=== PATIENT | male | born 1960 | race African-American/Black ===

== ENCOUNTER 2016-08-27 10:54 | Observation (INO) | payer OTHER ==
[2016-08-27] MEDS ORDERED: FAMOTIDINE 20 MG TAB PO ONE (11:05)
[2016-08-27] MEDS ORDERED: DIAZEPAM 5 MG TAB PO ONE (11:05)
[2016-08-27] MEDS ORDERED: NS 1,000 ML IV ONE (11:05)
[2016-08-27] MEDS ORDERED: diphenhydrAMINE 25 MG CAP PO ONE ×2 (11:05→12:24)
[2016-08-27] MEDS ORDERED: ASPIRIN EC 325 MG TAB PO ONE ×2 (11:05→12:26)
[2016-08-27] MEDS ORDERED: DIAZEPAM 5 MG TAB ONE (12:25)
[2016-08-27] MEDS ORDERED: FAMOTIDINE 20 MG TAB ONE (12:25)
[2016-08-27 12:29] LABS: ADD DIFF? NO; ADD MORPH? NO; ADD SCAN? NO; ATYPICAL LYMPHOCYTE FLAG 60 (0-99); FRAGMENT RBC FLAG 0 (0-99); HEMATOCRIT 43.1 % (40.0-51.0); HEMOGLOBIN 15.1 g/dL (13.7-17.5); LEFT SHIFT FLG 0 (0-99); LIPEMIA HEMOLYSIS FLAG 90 (0-99); MEAN CELL HEMOGLOBIN 29.5 pg (27.9-34.1); MEAN CELL VOLUME 84.2 fL (81.5-99.8); PLATELET CLUMPS FLAG 0 (0-99); PLATELET COUNT 207 10^3/uL (150-400); RED BLOOD CELL COUNT 5.12 10^6/uL (4.40-6.38); RED CELL DISTRIBUTION WIDTH 11.6 % (11.5-15.2)
[2016-08-27 12:39] LABS: INR 1.04 (0.83-1.16); PROTIME(PATIENT) 13.5 SEC (12.0-15.0)
[2016-08-27 12:47] LABS: ANION GAP 11 mEq/L (8-16); CALCIUM 9.4 mg/dL (8.5-10.4); CARBON DIOXIDE 25 mEq/l (22-31); CHLORIDE 106 mEq/L (97-110); CHOLESTEROL 244 mg/dL (140-220); CHOLESTEROL/HDL RATIO 5.19 RATIO (1.00-4.97); CREATININE 0.9 mg/dL (0.7-1.3); GLOMERULAR FILTRATION RATE > 60; GLUCOSE 104 mg/dL (70-100); HIGH DENSITY LIPOPROTEIN 47 mg/dL (40-65); LOW DENSITY LIPOPROTEIN 169 mg/dL (80-100); NON-HIGH DENSITY LIPOPROTEIN 197 mg/dL (90-129); POTASSIUM 4.1 mEq/L (3.5-5.2); SODIUM 142 mEq/L (134-144); TRIGLYCERIDE 144 mg/dL (40-150); VERY LOW DENSITY LIPOPROTEINS 28 mg/dL (8-25)
--- NOTE | 2016-08-27 12:56 | CPEKG ---
Heart Rate: 77 RR Interval: 779 P-R Interval: 168 QRSD Interval: 78 QT Interval: 384 QTC Interval: 435 P [place]: 77 QRS [place]: 57 T Wave [place]: 43 EKG Severity - BORDERLINE ECG - EKG Impression: SINUS ARRHYTHMIA, RATE 60-87 EKG Impression: BORDERLINE ST ELEVATION, ANTEROLATERAL LEADS Electronically Signed By: Navi Argueta 27-Aug-2016 15:37:15
[2016-08-27] MEDS ORDERED: HEPARIN 10,000 UNIT/10 ML MDV ONE (14:45)
[2016-08-27] MEDS ORDERED: fentaNYL 100 MCG/2 ML INJ ONE ×2 (14:45→15:31)
[2016-08-27] MEDS ORDERED: LIDOCAINE 1% 30 ML SDV ONE (14:45)
[2016-08-27] MEDS ORDERED: MIDAZOLAM 2 MG/2 ML VIAL ONE ×3 (14:45→15:32)
[2016-08-27] MEDS ORDERED: VERAPAMIL 5 MG/2 ML VIAL ONE (14:45)
[2016-08-27] MEDS ORDERED: IOPAMIDOL (ISOVUE-370) 150 ML BTL IV ONE ×2 (14:46→15:45)
--- NOTE | 2016-08-27 15:54 | PDDXCAT ---
Diagnostic Cath Note - . Date: 08/27/16 Intervention: None *Procedure Access: right radial (a plethysmography trace assisted Ernesto's Test was used to document dual artery supply to the hand and index finger prior to access). Procedure: 1. selective coronary angiography 2. left heart catheterization 3. left ventriculogram 4. stent implantation in the proximal left circumflex Indication: Abnormal exercise treadmill test with ST depression in v3-v5 suggestive of ischemia, CCS class III angina. *Materials Left Heart Cath size: 5F Left Heart Cath materials: JL3.5, LBU3.0, JR4.0, pigtail *Findings-Selective Coronary Angiography LM: Short, ~5 mm in size and quickly bifurcates into an LAD and circumflex system. There is no flow-limiting disease. LAD: The proximal LAD is ~3 mm in size. There is no evidence of flow-limiting disease with HUYEN III flow throughout. LCX: The left circumflex is dominant and ~3 mm in size proximally. There is a proximal lesion estimated to be 80% in area with HUYEN III flow. RCA: The right coronary artery is small, non-dominant and ~3 mm in size. There is no evidence of flow-limiting disease with HUYEN III flow throughout. *Findings-Left Heart Catheterization EDP: 9 mmHg LVEF: 65% Wall motion analysis: There are no wall motion abnormalities identified on left ventriculogram. The visualized portion of the thoracic aorta appears normal in size without félix evidence of aneurysm or dissection. *Intervention Intervention: A 5 [place] LBU3.0 guiding catheter was used for guide catheter support. A 0.014" [place] J Wire was advanced across the left circumflex lesion in question under direct fluoroscopic and angiographic guidance. A 3.75 x 12 mm Synergy drug eluting stent was placed in the proximal left circumflex and inflated to a maximum of 12 eleazar of pressure. S/p stent implantation, there was excellent angiographic results with 0% residual stenosis and HUYEN III flow. *Summary Complications: None Estimated blood loss: <50ml Closure method: TR Band Assessment/Conclusion: 1. Severe [place] vessel coronary artery disease of the proximal left circumflex that required stent implantation (3.75 x 12 mm Synergy drug eluting stent) as outlined above. S/p stent implantation there was 0% residual stenosis and HUYEN III flow. 2. Normal ejection fraction of 65% and LVEDP at 9 mmHg with no wall motion abnormalities on left ventriculogram. The patient will need to be on dual antiplatelet therapy with ASA and Plavix for a minimum of 1 year s/p stent implantation. His hyperlipidemia should be managed with 20 mg Rosuvastatin daily to prevent the progression of plaque formation, progression and inflammation. He will need follow up in the clinic with lipids and liver enzymes.
[2016-08-27] MEDS ORDERED: NITROGLYCERIN 1,500 MCG/15 ML VIAL MISC ONE (15:59)
[2016-08-27] MEDS ORDERED: ATROPINE SULFATE 1 MG/10 ML SYR IVP PRN (16:16)
[2016-08-27] MEDS ORDERED: ONDANSETRON 4 MG/2 ML VIAL IVP PRN (16:16)
[2016-08-27] MEDS ORDERED: TEMAZEPAM 15 MG CAP PO PRN (16:16)
[2016-08-27] MEDS ORDERED: ACETAMINOPHEN 325 MG TAB PO PRN (16:16)
[2016-08-27] MEDS ORDERED: LORazepam 2 MG/ML INJ IVP PRN (16:16)
[2016-08-27] MEDS ORDERED: NITROGLYCERIN 0.4 MG BTL SL PRN (16:16)
[2016-08-27] MEDS ORDERED: PRASUGREL HCL 10 MG TAB PO ONE (16:16)
[2016-08-27] MEDS ORDERED: ONDANSETRON DISINTEGRATING 4 MG TAB PO PRN (16:16)
[2016-08-27] MEDS ORDERED: PRASUGREL HCL 10 MG TAB ONE (16:20)
[2016-08-27] MEDS ORDERED: NS 1,000 ML IV SCH (16:30)
--- NOTE | 2016-08-27 16:39 | CPEKG ---
Heart Rate: 61 RR Interval: 984 P-R Interval: 176 QRSD Interval: 80 QT Interval: 428 QTC Interval: 431 P [place]: 73 QRS [place]: -26 T Wave [place]: 59 EKG Severity - ABNORMAL ECG - EKG Impression: SINUS RHYTHM EKG Impression: BORDERLINE LEFT AXIS DEVIATION Electronically Signed By: Navi Argueta 28-Aug-2016 14:42:23
[2016-08-28 06:55] LABS: % IMMATURE GRANULYOCYTES 0.2 % (0.0-1.1); ABSOLUTE IMMATURE GRANULOCYTES 0.01 10^3/uL (0.00-0.10); ADD DIFF? NO; ADD MORPH? NO; ADD SCAN? NO; ATYPICAL LYMPHOCYTE FLAG 10 (0-99); FRAGMENT RBC FLAG 0 (0-99); HEMATOCRIT 41.8 % (40.0-51.0); HEMOGLOBIN 14.8 g/dL (13.7-17.5); LEFT SHIFT FLG 0 (0-99); LIPEMIA HEMOLYSIS FLAG 90 (0-99); MEAN CELL HEMOGLOBIN CONCENTR. 35.4 g/dL (32.4-36.7); MEAN CELL VOLUME 84.8 fL (81.5-99.8); MEAN PLATELET VOLUME 11.4 fL (8.7-11.7); PLATELET CLUMPS FLAG 0 (0-99); PLATELET COUNT 203 10^3/uL (150-400); RED BLOOD CELL COUNT 4.93 10^6/uL (4.40-6.38); RED CELL DISTRIBUTION WIDTH 11.9 % (11.5-15.2)
[2016-08-28 06:56] LABS: ALBUMIN 3.8 g/dL (3.5-5.0); ANION GAP 6 mEq/L (8-16); ASPARTATE AMINOTRANSFERASE 22 IU/L (17-59); BILIRUBIN,TOTAL 0.6 mg/dL (0.1-1.4); CALCIUM 9.2 mg/dL (8.5-10.4); CARBON DIOXIDE 25 mEq/l (22-31); CHLORIDE 108 mEq/L (97-110); CREATININE 0.9 mg/dL (0.7-1.3); GLOMERULAR FILTRATION RATE > 60; GLUCOSE 98 mg/dL (70-100); LACTATE DEHYDROGENASE 400 IU/L (313-618); MAGNESIUM 2.1 mg/dL (1.6-2.3); POTASSIUM 4.3 mEq/L (3.5-5.2); SODIUM 139 mEq/L (134-144)
[2016-08-28 08:46] VITALS: BP 126/94; PULSE 80; RESP 19; TEMP 98.2; O2SAT 98
[2016-08-28] MEDS ORDERED: ASPIRIN EC 325 MG TAB PO SCH (09:00)
[2016-08-28] MEDS ORDERED: ROSUVASTATIN CALCIUM 20 MG TAB PO SCH (09:00)
[2016-08-28] MEDS ORDERED: PRASUGREL HCL 10 MG TAB PO SCH (09:00)
--- NOTE | 2016-08-28 10:05 | CPEKG ---
Heart Rate: 75 RR Interval: 800 P-R Interval: 156 QRSD Interval: 78 QT Interval: 360 QTC Interval: 402 P [place]: 75 QRS [place]: 40 T Wave [place]: 25 EKG Severity - NORMAL ECG - EKG Impression: SINUS RHYTHM Electronically Signed By: Navi Argueta 28-Aug-2016 14:41:24
--- NOTE | 2016-08-28 12:32 | GDS ---
ADMISSION DIAGNOSES: 1. Chest pressure. 2. Abnormal exercise stress test. DISCHARGE DIAGNOSES: 1. Coronary artery disease. 2. Status post percutaneous coronary intervention of proximal circumflex with a 3.75 x 12 Synergy d rug-eluting stent. 3. Hypertension. 4. Hyperlipidemia. PROCEDURES DONE DURING HOSPITALIZATION: 1. Electrocardiogram. 2. Diagnostic cardiac catheterization. 3. Percutaneous coronary intervention of the proximal circumflex artery with 3.75 x 12 mm Synergy D ES. BRIEF HISTORY: Please see H and P. The patient is a 56-year-old male who has been reporting ongoin g chest discomfort for 4-6 weeks. He recently underwent exercise treadmill testing, showing ST depr ession in V3 through V5 at peak exercise with chest discomfort. At that point, he was sent to our o ffice for further evaluation, on August 26, followed by WILBER Eaton. After discussing with Dr. Leonides joshi, it was determined that for further evaluation the patient should undergo coronary catheterization . Patient agreed. HOSPITAL COURSE: Patient was admitted to the CVC, prepped for procedure and taken to the cardiac ca theterization lab. There, through the right radial access approach, Dr. Rivera performed a diagnost ic coronary catheterization on him, finding no flow-limiting disease in the left main, no evidence o f flow limiting disease in LAD, proximal lesion in the proximal circumflex around 80% to 90%, RCA no ndominant with no flow-limiting disease. LVEF was 65% with no wall motion identified. At that poin t, it was decided to intervene. Dr. Rivera successfully implanted at 3.75 x 12 mm Synergy SARAHI into the patient's proximal circumflex with no complications. The patient was started on dual anti-plate let therapy and transferred back to the CVC, and ultimately to the PCU for overnight observation. D uring the evening, the patient reports overnight on the telemetry floor he had no chest pain or shor tness of breath. Continuous cardiac monitoring shows sinus rhythm, with no arrhythmias or malignant pauses noted. PHYSICAL EXAMINATION: Done today. GENERAL APPEARANCE: Medium-built, well-groomed male. He is mason rt and oriented to person, place, time, and situation. Appears to be under no acute distress. MICA L SIGNS: Current vital signs are blood pressure 126/94, heart rate of 80, respirations 18, saturati ng 98% on room air, temperature of 36.8 degrees Celsius. HEENT: Head is normocephalic. Lips and t ongue are pink and moist with no signs of cyanosis. Conjunctivae pink. NECK: Trachea is midline, +2 carotid pulses bilateral, no auscultated bruits, no jugular vein distention. RESPIRATORY: Lungs clear to auscultation. No rhonchi, rales or wheezes. No accessory muscle use. No intercostal mus sigifredo retraction noted. CARDIAC: Regular rate, regular rhythm, S1, S2. No S3, S4, rubs, gallops or murmurs noted. ABDOMEN: Soft, nontender. Bowel sounds x4 quadrants. No organomegaly, no palpable masses. SKIN: Warm, dry. No clubbing or edema noted. Catheter insertion site, right wrist, punc ture site with no redness, swelling, drainage, ecchymosis or hematoma. Capillary refill within norm al limits to right finger and hand. NEURO: Cranial nerves 2-12 grossly intact. LABORATORY STUDIES: Today show WBC of 5.96, hemoglobin of 14.8, hematocrit of 41.8, platelet count 203. Sodium of 139, potassium 4.3, chloride 108, CO2 of 25, BUN 16, creatinine 0.9, glucose 98, jaciel cium 9.2, phosphorus 2.9, magnesium 2.1. Total bilirubin 0.6, AST 22, lactic is 400, alb umin 3.8. On admission, patient was noted to have a total cholesterol of 244, LDL of 169, HDL of 47 . Cardiac catheterization and intervention as mentioned above. Morning electrocardiogram shows sinus rhythm, normal axis, with no significant ST or T-wave abnormalities suggesting of ischemia. DISCHARGE DISPOSITION: Patient to be discharged home in stable condition. He is under activity res trictions of not lifting more than 10 pounds with the right hand for the next week and no strenuous activity for the next 2 weeks. DISCHARGE MEDICATIONS: Please see discharge medication reconciliation sheet. Note, patient has bee n asked to increase his aspirin therapy to 325 mg once daily. He has been started on Effient for 10 mg p.o. daily. He has also been started on Crestor at 20 mg p.o. at bedtime. Due to mildly elevat ed diastolic blood pressure, he has been started on lisinopril at 2.5 mg p.o. daily. DISCHARGE INSTRUCTIONS: Post percutaneous coronary intervention radial axis discharge instructions went over with the patient and his family, including medication compliancy, especially the importanc e of dual anti-platelet therapy and the importance to not stop it, activity restrictions, bathing pr ecautions, monitoring for signs of infection, bleeding precautions. Note, with the starting of getachew nopril, he has been given a lab slip to have a basic metabolic panel done before his next office vis it. He will also need to have a fasting lipid and liver panel done in 6-8 weeks with starting stati n therapy. A cardiac rehab referral has been done which he will follow up with as an outpatient. A t the time of discharge, the patient and his family verbalized understanding of all instructions and have no questions. They have been told if any problems or concerns come up post discharge, they ar e to notify our office or return to the hospital. Total time spent on discharge greater than 30 min [place]. /[id number]/MODL
== END 2016-08-28 12:43 | disposition home or self-care (01) ==
LOC: FCATH 10:54 → F2W 16:17
PROVIDERS: ADMIT Internal Medicine Cardiovascular Disease; ATTEND Internal Medicine Cardiovascular Disease
PROC: 4A023N7 Measurement of Cardiac Sampling and Pressure, Left Heart, Percutaneous Approach (ICD-10-PCS; principal; 2016-08-27)
PROC: B2111ZZ Fluoroscopy of Multiple Coronary Arteries using Low Osmolar Contrast (ICD-10-PCS; principal; 2016-08-27)
PROC: 027034Z Dilation of Coronary Artery, One Artery with Drug-eluting Intraluminal Device, Percutaneous Approach (ICD-10-PCS; principal; 2016-08-27)
PROC: B2151ZZ Fluoroscopy of Left Heart using Low Osmolar Contrast (ICD-10-PCS; principal; 2016-08-27)
DX: I25.119 Atherosclerotic heart disease of native coronary artery with unspecified angina pectoris (principal); R94.39 Abnormal result of other cardiovascular function study; I10 Essential (primary) hypertension; E78.5 Hyperlipidemia, unspecified
CPT/HCPCS: 92928; 93005; 93458; C1769; C1887; G0378; C1874; C9600; J1644; J2250; J3010; Q9967

== ENCOUNTER → 2016-11-10 | Outpatient (CLI) | payer OTHER | LOC: CIMAGING 07:51 | DX: R19.09 Other intra-abdominal and pelvic swelling, mass and lump (principal); R10.31 Right lower quadrant pain | CPT/HCPCS: 76705-PO ==

== ENCOUNTER → 2016-11-25 | Outpatient (CLI) | payer OTHER | LOC: CIMAGING 17:22 | DX: N50.812 Left testicular pain (principal) | CPT/HCPCS: 76870-PO ==

== ENCOUNTER 2017-04-13 16:10 | Observation (INO) | payer OTHER ==
[2017-04-13] MEDS ORDERED: ACETAMINOPHEN 325 MG TAB PO PRN (16:19)
[2017-04-13] MEDS ORDERED: TEMAZEPAM 15 MG CAP PO PRN (16:19)
[2017-04-13] MEDS ORDERED: NITROGLYCERIN 0.4 MG BTL SL PRN (16:19)
[2017-04-13] MEDS ORDERED: ACETAMINOPHEN 650 MG/20.3 ML UDCUP PO PRN (16:22)
[2017-04-13 18:33] LABS: % IMMATURE GRANULYOCYTES 0.2 % (0.0-1.1); ABSOLUTE IMMATURE GRANULOCYTES 0.01 10^3/uL (0.00-0.10); ADD DIFF? NO; ADD MORPH? NO; ADD SCAN? NO; ATYPICAL LYMPHOCYTE FLAG 0 (0-99); FRAGMENT RBC FLAG 0 (0-99); HEMATOCRIT 47.6 % (40.0-51.0); HEMOGLOBIN 16.4 g/dL (13.7-17.5); LEFT SHIFT FLG 0 (0-99); LIPEMIA HEMOLYSIS FLAG 90 (0-99); MEAN CELL HEMOGLOBIN CONCENTR. 34.5 g/dL (32.4-36.7); MEAN CELL VOLUME 87.2 fL (81.5-99.8); PLATELET CLUMPS FLAG 0 (0-99); PLATELET COUNT 260 10^3/uL (150-400); RED BLOOD CELL COUNT 5.46 10^6/uL (4.40-6.38)
[2017-04-13 18:56] LABS: ANION GAP 15 mEq/L (8-16); CALCIUM 9.7 mg/dL (8.5-10.4); CARBON DIOXIDE 23 mEq/l (22-31); CHLORIDE 101 mEq/L (97-110); CREATININE 0.9 mg/dL (0.7-1.3); GLOMERULAR FILTRATION RATE > 60; GLUCOSE 90 mg/dL (70-100); POTASSIUM 4.5 mEq/L (3.5-5.2); SODIUM 139 mEq/L (134-144)
[2017-04-13 19:07] LABS: TROPONIN I 0.012 ng/mL (0.000-0.034)
[2017-04-14] MEDS ORDERED: diphenhydrAMINE 25 MG CAP PO ONE (06:00)
[2017-04-14] MEDS ORDERED: NS 1,000 ML IV ONE (06:00)
[2017-04-14] MEDS ORDERED: DIAZEPAM 5 MG TAB PO ONE (06:00)
[2017-04-14] MEDS ORDERED: ASPIRIN EC 325 MG TAB PO ONE (06:00)
[2017-04-14] MEDS ORDERED: FAMOTIDINE 20 MG TAB PO ONE (06:00)
[2017-04-14 06:28] LABS: % IMMATURE GRANULYOCYTES 0.2 % (0.0-1.1); ABSOLUTE IMMATURE GRANULOCYTES 0.01 10^3/uL (0.00-0.10); ADD DIFF? NO; ADD MORPH? NO; ADD SCAN? NO; ATYPICAL LYMPHOCYTE FLAG 20 (0-99); FRAGMENT RBC FLAG 0 (0-99); HEMATOCRIT 44.5 % (40.0-51.0); HEMOGLOBIN 15.6 g/dL (13.7-17.5); LEFT SHIFT FLG 0 (0-99); LIPEMIA HEMOLYSIS FLAG 90 (0-99); MEAN CELL HEMOGLOBIN CONCENTR. 35.1 g/dL (32.4-36.7); MEAN CELL VOLUME 88.3 fL (81.5-99.8); MEAN PLATELET VOLUME 10.7 fL (8.7-11.7); PLATELET CLUMPS FLAG 0 (0-99); PLATELET COUNT 216 10^3/uL (150-400); RED BLOOD CELL COUNT 5.04 10^6/uL (4.40-6.38); RED CELL DISTRIBUTION WIDTH 12.1 % (11.5-15.2)
[2017-04-14 06:38] LABS: INR 1.09 (0.83-1.16)
[2017-04-14 06:39] LABS: APTT 27.3 SEC (23.0-38.0)
[2017-04-14 07:07] LABS: ANION GAP 11 mEq/L (8-16); CALCIUM 9.1 mg/dL (8.5-10.4); CARBON DIOXIDE 23 mEq/l (22-31); CHLORIDE 105 mEq/L (97-110); CHOLESTEROL 122 mg/dL (140-220); CHOLESTEROL/HDL RATIO 2.35 RATIO (1.00-4.97); GLOMERULAR FILTRATION RATE > 60; GLUCOSE 98 mg/dL (70-100); HIGH DENSITY LIPOPROTEIN 52 mg/dL (40-65); LDL/HDL RATIO 0.98 RATIO (1.00-3.64); LOW DENSITY LIPOPROTEIN 51 mg/dL (80-100); NON-HIGH DENSITY LIPOPROTEIN 70 mg/dL (90-129); POTASSIUM 5.1 mEq/L (3.5-5.2); SODIUM 139 mEq/L (134-144); TRIGLYCERIDE 97 mg/dL (40-150); VERY LOW DENSITY LIPOPROTEINS 19 mg/dL (8-25)
--- NOTE | 2017-04-14 08:40 | CPEKG ---
Heart Rate: 64 RR Interval: 938 P-R Interval: 156 QRSD Interval: 78 QT Interval: 384 QTC Interval: 396 P [place]: 74 QRS [place]: 40 T Wave [place]: 39 EKG Severity - OTHERWISE NORMAL ECG - EKG Impression: SINUS RHYTHM EKG Impression: MINIMAL ST ELEVATION, ANTERIOR LEADS Electronically Signed By: Andre Pearson 15-Apr-2017 13:58:56
[2017-04-14] MEDS: ASPIRIN EC 81 MG TAB PO SCH (09:04)
[2017-04-14] MEDS: PRASUGREL HCL 10 MG TAB PO SCH (09:23)
--- NOTE | 2017-04-14 09:47 | ASMTCMCOM ---
CM Note CM Note Notes: 04/14/2017 Case Management Note Reviewed chart, spoke w/RN. Pt to have angio today at 11. No case management d/c needs identified d/t strong family support, pt age and activity levels prior to admission. No therapy evals ordered. Case Management d/c poc: Home independent when medically stable with follow up as directed. Date Signed: 04/14/2017 09:46 AM Electronically Signed By:Sheba Jeffries RN
[2017-04-14] MEDS: LISINOPRIL 2.5 MG TAB PO SCH (10:00)
[2017-04-14] MEDS: ROSUVASTATIN CALCIUM 20 MG TAB PO SCH (10:00)
--- NOTE | 2017-04-14 10:52 | PDPROPOC ---
Sedation Plan of Care Sedation Plan of Care: vital signs stable, patient educated of risks, benefits, alternatives, patient can tolerate sedation ASA Classification: ASA 2 Planned drugs: fentanyl, midazolam Mallampati Score: Class 2 Mallampati Reference Image: Patient passed 3-3-2 rule?: Yes
--- NOTE | 2017-04-14 10:52 | PDHPUP ---
History & Physical Update H&P update statement: This history and physical update is based on an assessment of the patient which was completed after admission or registration (within 24 hours), but prior to the surgery/procedure. H&P update: H&P reviewed & patient examined, no change in patient's condition since H&P completed
[2017-04-14] MEDS ORDERED: fentaNYL 100 MCG/2 ML INJ ONE ×3 (11:00→16:53)
[2017-04-14] MEDS ORDERED: LIDOCAINE 1% 300 MG/30 ML SDV ONE (11:00)
[2017-04-14] MEDS ORDERED: HEPARIN 10,000 UNIT/10 ML MDV ONE (11:01)
[2017-04-14] MEDS ORDERED: VERAPAMIL 5 MG/2 ML VIAL ONE (11:01)
[2017-04-14] MEDS ORDERED: IOPAMIDOL (ISOVUE-370) 150 ML BTL IV ONE ×2 (11:01→12:53)
[2017-04-14] MEDS ORDERED: MIDAZOLAM 2 MG/2 ML VIAL ONE ×2 (11:01→11:41)
[2017-04-14] MEDS ORDERED: BIVALIRUDIN 250 MG/5 ML VIAL IV ONE (12:04)
[2017-04-14] MEDS ORDERED: NITROGLYCERIN 1,500 MCG/15 ML VIAL MISC ONE ×2 (12:31→12:37)
--- NOTE | 2017-04-14 12:33 | PDDXCAT ---
Diagnostic Cath Note - . Date: 04/14/17 Medical Billing Associate: Selina Indication: CCC Class III and IV angina on medical treatment - Procedure Access: right groin Procedure: left heart catheterization, coronary angiography, left ventriculogram - Materials Left Heart Cath size: 6F - Findings-Left Heart Catheterization LM: normal. LAD: normal LCX: Prox LCx with 95% ISRS. Two normal OM RCA: nondominant, no sig disease EDP: 10 LVEF: 70 Wall motion: normal Complications: none Estimated blood loss: <50ml Assessment: ISRS LCx Intervention: consult with Dr. Argueta for PCI off LCx
[2017-04-14] MEDS ORDERED: ADENOSINE 90 MG/30 ML VIAL IV ONE (12:39)
[2017-04-14] MEDS ORDERED: fentaNYL 100 MCG/2 ML INJ IVP ONE (17:15)
--- NOTE | 2017-04-14 17:24 | CPEKG ---
Heart Rate: 71 RR Interval: 845 P-R Interval: 152 QRSD Interval: 76 QT Interval: 384 QTC Interval: 418 P [place]: 78 QRS [place]: 51 T Wave [place]: 37 EKG Severity - NORMAL ECG - EKG Impression: SINUS RHYTHM Electronically Signed By: Andre Pearson 15-Apr-2017 13:59:04
[2017-04-15 05:18] LABS: % IMMATURE GRANULYOCYTES 0.3 % (0.0-1.1); ABSOLUTE IMMATURE GRANULOCYTES 0.02 10^3/uL (0.00-0.10); ADD DIFF? NO; ADD MORPH? NO; ADD SCAN? NO; ATYPICAL LYMPHOCYTE FLAG 10 (0-99); FRAGMENT RBC FLAG 0 (0-99); HEMOGLOBIN 13.4 g/dL (13.7-17.5); LEFT SHIFT FLG 0 (0-99); LIPEMIA HEMOLYSIS FLAG 90 (0-99); MEAN CELL HEMOGLOBIN CONCENTR. 34.4 g/dL (32.4-36.7); MEAN CELL VOLUME 87.4 fL (81.5-99.8); MEAN PLATELET VOLUME 11.5 fL (8.7-11.7); PLATELET CLUMPS FLAG 0 (0-99); PLATELET COUNT 210 10^3/uL (150-400); RED BLOOD CELL COUNT 4.46 10^6/uL (4.40-6.38)
[2017-04-15 05:32] LABS: ALBUMIN 3.1 g/dL (3.5-5.0); ANION GAP 7 mEq/L (8-16); ASPARTATE AMINOTRANSFERASE 18 IU/L (17-59); BILIRUBIN,TOTAL 0.5 mg/dL (0.1-1.4); CALCIUM 8.8 mg/dL (8.5-10.4); CARBON DIOXIDE 24 mEq/l (22-31); CHLORIDE 103 mEq/L (97-110); CREATININE 0.9 mg/dL (0.7-1.3); GLOMERULAR FILTRATION RATE > 60; GLUCOSE 85 mg/dL (70-100); POTASSIUM 4.2 mEq/L (3.5-5.2); SODIUM 134 mEq/L (134-144)
[2017-04-15 08:24] VITALS: BP 108/75; PULSE 98; RESP 16; TEMP 98.3; O2SAT 97
[2017-04-15] MEDS: ASPIRIN EC 81 MG TAB PO SCH (08:55)
[2017-04-15] MEDS: ROSUVASTATIN CALCIUM 20 MG TAB PO SCH (08:55)
[2017-04-15] MEDS: LISINOPRIL 2.5 MG TAB PO SCH (08:55)
[2017-04-15] MEDS: PRASUGREL HCL 10 MG TAB PO SCH (08:55)
--- NOTE | 2017-04-15 08:55 | CPEKG ---
Heart Rate: 88 RR Interval: 682 P-R Interval: 164 QRSD Interval: 80 QT Interval: 340 QTC Interval: 412 P [place]: 84 QRS [place]: 47 T Wave [place]: 40 EKG Severity - NORMAL ECG - EKG Impression: SINUS RHYTHM Electronically Signed By: Andre Pearson 15-Apr-2017 13:59:13
--- NOTE | 2017-04-15 11:46 | GDS ---
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 Unique Marks. ADMISSION DIAGNOSES: 1. Exertional chest pressure. 2. History of coronary artery disease with previous percutaneous coronary intervention of the circum flex, 08/27/2016. 3. Dyslipidemia. 4. Hypertension. DISCHARGE DIAGNOSES: 1. Coronary artery disease. 2. Restenoses of SARAHI stent in proximal circumflex. 3. New Xience SARAHI implantation into the proximal circumflex. 4. Hypertension. 5. Dyslipidemia. PROCEDURES DONE DURING HOSPITALIZATION: 1. Electrocardiogram. 2. Diagnostic coronary catheterization. 3. Percutaneous coronary intervention of the circumflex artery with a 3.5 x 15 Xience drug-eluting s tent. 4. Pressure wire of LAD with FFR of 0.86. BRIEF HISTORY: Please see H and P. Briefly, the patient is a 56-year-old male with known history of CAD. He recently underwent percutaneous coronary intervention of the circumflex artery on August 27, 2016. He was seen in our office on April 13 by WILBER Fisher. There, he was reporting, after w alking 20 feet, developing exertional chest pressure. Due to his recent history of PCI and multiple cardiac risk factors and symptoms, it was decided that the patient should be directly admitted to the hospital for observation with plan of cardiac catheterization. HOSPITAL COURSE: The patient was admitted to the telemetry unit, PCU, directly from the office on . There, laboratory studies were drawn. He had initial troponin levels drawn, which were neg ative. He was asymptomatic through the night. On April 14, he was taken to the cardiac catheteriz ation lab where Dr. Marks performed a diagnostic heart catheterization on him. Findings of the study showed left main was normal, LAD was normal, proximal circumflex stent with in-stent restenosis of 95 %, and RCA was nondominant and no significant disease. LV gram was done, showing LVEF of 70% with ED P of 10 mmHg. At that point, Dr. Argueta of Interventional Cardiology was consulted. Reviewing obdulio ms with Dr. Marks, it was decided that the patient should proceed with percutaneous coronary intervent ion. Dr. Argueta was successfully able to implant a 3.5 x 15 Xience stent, different stent from his previous one, through the restenosis of previous stent, leaving 0 residual. There was a mild plaque shift to the proximal LAD. At that point, Dr. Argueta performed a pressure wire on him, with a fra ctional flow showing no flow-limiting disease. The patient was taken off the table. He continued hi s dual anti-platelet therapy of aspirin and clopidogrel. Unfortunately, at the end of the procedure, the patient was taken back to the CVC. There, he waited for his ECT to come within normal limits, a nd his femoral sheath was removed. Unfortunately, after obtaining hemostasis, patient did move and d eveloped a small hematoma over the puncture site, but no active bleeding. Manual pressure was held, and bed rest continued. Hemostasis was re-attained. The patient was taken back to the PCU for overni ght observation. Per continuous cardiac monitoring, he has been in sinus rhythm with no ectopy or ma lignant pauses noted. He has been up and walking in the unit without any symptoms suggesting of isch emia. He has had no further increase in hematoma on his right groin. PHYSICAL EXAMINATION: Done today. GENERAL APPEARANCE: Thin, short-statured, male. CURRENT VITAL SIGNS: Blood pressure of 108/75, heart rate 98, sinus rhythm on the monitor, respira tions 16, saturating 97% on room air, temperature of 36.8 degrees Celsius. HEENT: Head is normoceph alic. Lips and tongue are pink and moist, with no signs of cyanosis. Conjunctivae pink. NECK: Tra ike is midline. +2 carotid pulses bilateral. No auscultated bruits, no jugular vein distention. R ESPIRATORY: Lungs clear to auscultation. No rhonchi, rales or wheezes. No accessory muscle use. N o intercostal muscle retraction noted. CARDIAC: Regular rate, regular rhythm, S1, S2, no S3, S4, ga llops, rubs or murmurs noted. ABDOMEN: Soft, nontender, bowel sounds x4 quadrants. No organomegaly , no palpable masses. SKIN: [place], warm, dry, no cyanosis, no clubbing, no peripheral edema. VASCUL AR: +2 carotids bilateral, +2 radials bilateral, +2 dorsal pedal and posterior tibial pulses bilater al. Catheter insertion site, right groin site, with no redness, swelling, drainage, or ecchymosis no oseas. A 2 x 2 small hematoma over puncture site, nontender, noted. No auscultated bruit over site. LABORATORY DATA: Laboratory studies drawn today showed WBC of 7.54, hemoglobin of 13.4, hematocrit o f 39.0, platelet count of 210, sodium 134, potassium 4.2, chloride 103, CO2 24, BUN 15, creatinine 0. 9, glucose 85, phosphorus 3.7, magnesium 2.0, total bilirubin 0.5, AST 18. The patient did have fast ing lipid panel drawn yesterday showing triglycerides of 97, total cholesterol 122, LDL 51, HDL of 52 . Patient had 2 troponins drawn before his heart catheterization; both of them were negative. PROCEDURES PERFORMED: Morning electrocardiogram shows sinus rhythm, normal axis, no acute ST or T-wa ve abnormalities. Diagnostic heart catheterization as mentioned above. Percutaneous coronary interv ention as mentioned above. Flow wire procedure as mentioned above. DISPOSITION: Patient will be discharged home in stable condition. He is under activity restrictions of not lifting more than 10 pounds for the next week and no strenuous activity for the next 2 weeks. DISCHARGE MEDICATIONS: Please see discharge medication reconciliation sheet. Patient will be contin ued on all his home medications, with the exception of increasing his aspirin to 325 mg p.o. daily. He will remain on current dose of Effient. The importance of dual anti-platelet therapy with drug-el uting stent implantation was explained to the patient, and he verbalizes understanding. DISCHARGE INSTRUCTIONS: Post-percutaneous coronary intervention discharge instructions went over wit h the patient and his , including monitoring for signs of infection, bleeding precautions, activi ty restrictions, and medication compliance. At the time of discharge, both patient and his verb alized understanding of all instructions and have no questions. They have been told that if any prob lems or concerns come up post discharge, they are to call our office or return to the hospital immedi ately. The patient does have a followup appointment with WILBER Fisher, of our services set for April 27. Total time spent on discharge: Greater than 30 minutes. /[id number]/MODL
--- NOTE | 2017-04-15 13:54 | ASDISCHSUM ---
Discharge Information Plan Status:Home with No Needs Medically Cleared to Leave: Discharge Date:04/15/2017 11:29 AM CM D/C Disposition:Home, Routine, Self-Care ADT D/C Disposition:Home, Routine, Self-Care Projected Discharge Date:04/15/2017 11:29 AM Transportation at D/C:Family Discharge Delay Reason: Follow-Up Date:04/15/2017 11:29 AM Discharge Slot: Final Diagnosis: Placement Information Patient Contact Information Contact Name:KEENAN Relationship: Address:[address] [place] [address] City:[facility] Phone: [facility] Code:[place] [address] Email: Financial Information Financial Class:[facility] Primary Plan Desc:[employer] OPEN ACC [facility] Primary Plan Number:[id number] Secondary Plan Desc: Secondary Plan Number: Assessment Information [facility] CM Progress Note CM Note CM Note Notes: 04/14/2017 Case Management Note Reviewed chart, spoke w/RN. Pt to have angio today at 11. No case management d/c needs identified d/t strong family support, pt age and activity levels prior to admission. No therapy evals ordered. Case Management d/c poc: Home independent when medically stable with follow up as directed. Date Signed: 04/14/2017 09:46 AM Electronically Signed By:Sheba Jeffries RN Intervention Information
== END 2017-04-15 11:29 | disposition home or self-care (01) ==
LOC: F2W 16:50
PROVIDERS: ADMIT Internal Medicine Cardiovascular Disease; ATTEND Internal Medicine Cardiovascular Disease
PROC: 027034Z Dilation of Coronary Artery, One Artery with Drug-eluting Intraluminal Device, Percutaneous Approach (ICD-10-PCS; principal; 2017-04-13)
PROC: 4A033BC Measurement of Arterial Pressure, Coronary, Percutaneous Approach (ICD-10-PCS; principal; 2017-04-13)
PROC: B2151ZZ Fluoroscopy of Left Heart using Low Osmolar Contrast (ICD-10-PCS; 2017-04-13)
PROC: B2111ZZ Fluoroscopy of Multiple Coronary Arteries using Low Osmolar Contrast (ICD-10-PCS; 2017-04-13)
PROC: 4A023N7 Measurement of Cardiac Sampling and Pressure, Left Heart, Percutaneous Approach (ICD-10-PCS; 2017-04-13)
DX: I25.110 Atherosclerotic heart disease of native coronary artery with unstable angina pectoris (principal); T82.857A Stenosis of other cardiac prosthetic devices, implants and grafts, initial encounter; E78.5 Hyperlipidemia, unspecified; I10 Essential (primary) hypertension
CPT/HCPCS: 92928; 93005; 93458; 93571; C1725; C1769; C1887; G0378; C1874; C9600; J0153; J0583; J1644; J2250; J3010; Q9967

== ENCOUNTER → 2018-01-21 | Outpatient (CLI) | payer OTHER | LOC: FIMAGING 08:44 | PROVIDERS: ATTEND Thoracic Surgery (Cardiothoracic Vascular Surgery) | DX: Z09 Encounter for follow-up examination after completed treatment for conditions other than malignant neoplasm (principal); J90 Pleural effusion, not elsewhere classified; J98.11 Atelectasis; Z95.1 Presence of aortocoronary bypass graft ==